=== PATIENT | female | born 1990 | race American Indian/Alaskan Native ===

== ENCOUNTER 2017-07-26 05:34 | Day surgery (SDC) | payer OTHER ==
--- NOTE | 2017-07-22 12:15 | History and Physical Report ---
History of Present Illness Date of examination: 07/22/17 Date of admission: 07/18/2017 Chief complaint: here for cerclage History of present illness: Pt with h/o cervical incompetence present for preop for cerclage placement. All risk, benefits and alternatives were d/w pt and questions were addressed and answered. Risk including but not limited to, SROM, bleeding, injury to cervix, uterus, vagina, delivery, loss of . Pt and expressed understanding and questions were addressed and answered. Menstrual History Regularity: regular Duration: 5 LMP: 04/17/2017 LMP reliability: month known LMP character: normal test type: urine test Date: 06/11/2017 BC at conception: none Planned ? yes EDC Calculations LMP: 01/22/2018 EDC Confirmation: 01/22/2018 Gestational Age: 7 6/7 weeks Past History : 2 Term Births: 0 Premature Births: 1 Living Children: 0 Para: 1 Mult. Births: 0 Prev : 0 Prev. attempt? 0 Aborta: 0 Elect. Ab: 0 Spont. 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 of genital herpes: no Partner hx. of genital herpes: no Genetic History Congenital Heart Defect: Mom: no Dad: no Sumit Disease: Mom: no Dad: no Thalassemia Mom: no Dad: no Neural Tube Defect Mom: no Dad: no Down's Syndrome Mom: no Dad: no Chaim-Sachs Mom: no Dad: no Sickle Cell Disease/Trait Mom: no Dad: no Hemophilia Mom: no Dad: no Muscular Dystrophy Mom: no Dad: no Cystic Fibrosis Mom: no Dad: no Marie Chorea Mom: no Dad: no Mental Retardation Mom: no Dad: no Fragile X Mom: no Dad: no Other Genetic/Chromosomal Disorder Mom: no Dad: no Child w/other defect Mom: no Dad: no Enviromental Exposures Xray Exposure: no Medication, drug, or alcohol use since LMP: no Chemical/Other Exposure: no Exposure to Cat Liter: no Active Medications (reviewed today): VITAMINS () Current Allergies (reviewed today): No known allergies Past History Past Medical History: other (see hpi) Past Surgical History: other (see hpi) SHOULDER BONER History: other (see hpi) Family/Genetic History: other (see hpi) Social history: no significant social history - Obstetrical History Expected Date of Delivery: 01/22/18 Actual Gestation: 13 Week(s) 5 Day(s) : 2 Number of Pregnancies: 1 (@ 21 wks cervical incompetence, PTL) Number of Living Children: 0 Review of Systems All systems: negative - Physical Exam Cardiovascular: Normal S1 Lungs: Positive: Clear to auscultation, Normal air movement Abdomen: Positive: normal appearance, soft. Negative: distention, tenderness, guarding Genitourinary (Female): Positive: other (deferred until EUA) - Obstetrical FHR: auscultation normal Results All other labs normal. Assessment and Plan - Patient Problems (1) 14 weeks gestation of Status: Acute (2) Cervical incompetence affecting management of in second trimester , antepartum Status: Acute Plan to address problem: -CL normal at this time. Will proceed with prophalactic cerclage placement at this time. Consents singed and given to pt to present on day of surgery.
[~2017-07-26 05:34] MED LIST: ZOFRAN IV PRN
[2017-07-26] MEDS ORDERED: LACTATED RINGERS 1,000 ML ONE ×2 (05:46→08:37)
[2017-07-26] MEDS ORDERED: LACTATED RINGERS 1,000 ML IV ONE (06:06)
[2017-07-26] MEDS ORDERED: BICITRA PO ONE (06:07)
[2017-07-26] MEDS ORDERED: PEPCID IV ONE (06:10)
[2017-07-26 06:20] LABS: Basophils % (Auto) 0.2 % (0.0-1.8); Eosinophils # (Auto) 0.1 K/mm3 (0.0-0.4); Eosinophils % (Auto) 1.9 % (0.0-4.3); Hematocrit 35.3 % (30.3-42.9); Hemoglobin 11.5 gm/dl (10.1-14.3); Lymphocytes # (Auto) 1.7 K/mm3 (1.2-5.4); Lymphocytes % (Auto) 25.3 % (13.4-35.0); Mean Corpuscular HGB Conc 33 % (30-34); Monocytes # (Auto) 0.5 K/mm3 (0.0-0.8); Monocytes % (Auto) 7.6 % (0.0-7.3); Platelet Count 212 K/mm3 (140-440); Red Blood Count 5.16 M/mm3 (3.65-5.03); Red Cell Distribution Width 16.2 % (13.2-15.2)
[2017-07-26 06:22] LABS: Mean Corpuscular Hemoglobin 22 pg (28-32); Mean Corpuscular Volume 68 fl (79-97)
[2017-07-26] MEDS ORDERED: REGLAN IV NR (07:00)
[2017-07-26] MEDS ORDERED: ANCEF/STERILE WATER 2 GM/20 ML IV NR (07:23)
[2017-07-26] MEDS ORDERED: XYLOCAINE MPF 2% ONE (08:24)
[2017-07-26] MEDS ORDERED: WATER FOR IRRIG STERILE IR ONE (08:30)
--- NOTE | 2017-07-26 09:09 | Anesthesia Consultation ---
Anesthesia Consult and Med Hx Date of service: 07/26/17 - Pulmonary Exam CTA: Yes - Cardiac Exam Cardiac Exam: RRR - Pre-Operative Health Status ASA Pre-Surgery Classification: ASA2 (14 wk ; incompetent cervix) - Pulmonary Hx Asthma: No COPD: No Hx Pneumonia: No - Cardiovascular System Hx Hypertension: No - Central Nervous System Hx Seizures: No Hx Psychiatric Problems: No - Endocrine Hx Renal Disease: No Hx End Stage Renal Disease: No Hx Hypothyroidism: No Hx Hyperthyroidism: No - Hematic Hx Anemia: No Hx Sickle Cell Disease: No - Other Systems Hx Alcohol Use: No
--- NOTE | 2017-07-26 09:10 | Anesthesia Day of Surgery ---
Anesthesia Day of Surgery - Day of Surgery Patient Examined: Yes Patient H&P Reviewed: Yes Patient is NPO: Yes
--- NOTE | 2017-07-26 09:25 | Short Stay Summary ---
Short Stay Documentation Date of service: 07/26/17 - History H&P: dictated Social history: no significant social history - Allergies and Medications Current Medications: Allergies No Known Allergies Allergy (Verified 07/26/17 05:54) Home Medications Medication Instructions Recorded Confirmed Last Taken Type Vit No.130/Iron/Folic 1 each PO QDAY 07/26/17 07/26/17 07/25/17 History [ Tablet] Active Medications Acetaminophen (Tylenol) 650 mg PO Q4H PRN PRN Reason: Pain MILD(1-3)/Fever >100.5/GEIGER Cefazolin Sodium (Ancef/Sterile Water 2 Gm/20 Ml) 2 gm IV PREOP NR Stop: 07/26/17 23:59 Ondansetron HCl (Zofran) 4 mg IV Q8H PRN PRN Reason: Nausea And Vomiting - Brief post op/procedure progress note Date of procedure: 07/26/17 Pre-op diagnosis: cervical incompetence ; 14 wks gestation Post-op diagnosis: same Procedure: cerglcage placement Anesthesia: spinal Findings: Normal cervix. closed. No bleeding prior to procedure or LOF. minimal bleeding after the procedure and no LOF at end of procedure. Surgeon: ANGELA KELLER Estimated blood loss: minimal Pathology: none Condition: stable - Hospital course Hospital course: Pt admitted for above stated procedure. Pt observed and once d/c criteria was met was d/c home. FHTs checked prior to and after the procedure and were normal. - Disposition Condition at discharge: Good Disposition: DC-01 TO HOME OR SELFCARE - Discharge Diagnoses (1) 14 weeks gestation of Status: Acute (2) Cervical incompetence affecting management of in second trimester , antepartum Status: Acute Short Stay Discharge Plan Activity: no restrictions, other (pelvic rest. no sex, no tampons, no douching, ABSOLUTELY NOTHING IN THE VAGINA) Diet: regular Wound: open to air Special Instructions: restrict fluid intake to Follow up with: ANGELA KELLER MD [Primary Care Provider] - 7 Days
--- NOTE | 2017-07-26 09:36 | Operative Report ---
Operative Report Operative Report: Date of procedure: 07/26/2017 Pre-operative diagnosis: Cervical incompetence 14 weeks gestation Post-operative diagnosis: Same Procedure name(s): Melony cerclage Surgeon: Dr. Subramanian Executive Consultant: Ms. Tania De Luna CST Anesthesia: Spinal EBL: Minimal Urine output: 200 mL of clear urine out via straight catheterization at the beginning of the procedure. Fluids: 1 L Findings: Closed cervix appears to be normal length. There is no evidence of rupture membranes before after the procedure. Minimal bleeding was noted during the procedure. Patient was noted to be completely hemostatic at the end of the procedure. Stitch was placed at the 12 o'clock position. Indications: Patient presents for placement of prophylactic cervical cerclage for history of loss at 20 weeks gestation. Patient was given a diagnosis of cervical incompetence. Cerclage placement was recommended by the perinatologist. Procedure: After informed consent was obtained patient was taken to the operating room where she was placed in dorsal lithotomy position with legs being placed in Scott stirrups. The patient was then prepped and draped in sterile fashion. Patient underwent straight catheterization as above. Sterile speculum was then placed inside of the vagina. Cervix was then prepped with Betadine. Anterior lip of the cervix was grasped with the ring forceps. The Mersilene suture was then placed starting at the 12:00 position with a purse string suture being placed to encompass the entire cervix. Care was taken to avoid the 3:00 and 6:00 positions of the cervix. The suture was then secured by tying down the suture with several knots. Minimal bleeding was noted during the procedure at the level of the cervix. Her was no evidence of rupture of membranes at the end of the procedure. There was no bleeding noted at the end of the procedure. Patient tolerated procedure well. All instruments were removed from the vagina. Patient was taken to the recovery room awake and in stable condition.
[2017-07-26] MEDS: TYLENOL PO PRN ×2 (09:46→13:55)
[2017-07-26 11:54] VITALS: BP 107/63
--- NOTE | 2017-07-26 12:49 | Post Anesthesia Evaluation ---
- Post Anesthesia Evaluation Patient Participated: Yes Airway Patent: Yes Stable Respiratory Function: Yes Nausea/Vomiting: No Temp > 96.8F: Yes Pain Manageable: Yes Adequeate Hydration: Yes Anesthesia Complications: No
== END 2017-07-26 14:06 | disposition home or self-care (01) ==
LOC: LDOR 05:34 → APU 05:42 → LDOR 14:06
PROVIDERS: ATTEND Obstetrics & Gynecology
DX: O34.32 Maternal care for cervical incompetence, second trimester (principal); Z3A.14 14 weeks gestation of pregnancy
CPT/HCPCS: 36415; 59320; 85025; 86850; 86900; 86901; 96360; J2765; J7120

== ENCOUNTER 2018-01-29 12:34 | Inpatient (IN) | payer OTHER ==
[2018-01-29] MEDS ORDERED: PEPCID IV ONE (12:53)
[2018-01-29] MEDS ORDERED: BICITRA PO ONE (12:53)
[2018-01-29] MEDS ORDERED: REGLAN IV ONE (12:53)
[2018-01-29] MEDS ORDERED: ANCEF/STERILE WATER 2 GM/20 ML 2 GM/20 ML SYRINGE IV NR (13:00)
[2018-01-29] MEDS ORDERED: PITOCin/NS 20 UNIT/1000ML DRIP 20 UNITS/1,000 ML BAG IV SCH ×2 (13:00→19:00)
[2018-01-29] MEDS: LACTATED RINGERS 1,000 ML IV SCH ×3 (13:20→22:42)
--- NOTE | 2018-01-29 13:23 | Anesthesia Consultation ---
Anesthesia Consult and Med Hx Date of service: 01/29/18 - Airway Anesthetic Teeth Evaluation: Good ROM Head & Neck: Adequate Mental/Hyoid Distance: Adequate Mallampati Class: Class II Intubation Access Assessment: Probably Good - Pre-Operative Health Status ASA Pre-Surgery Classification: ASA2 Proposed Anesthetic Plan: Epidural, Spinal - Pulmonary Hx Asthma: No COPD: No Hx Pneumonia: No - Cardiovascular System Hx Hypertension: No - Central Nervous System Hx Seizures: No Hx Psychiatric Problems: No - Endocrine Hx Renal Disease: No Hx End Stage Renal Disease: No Hx Hypothyroidism: No Hx Hyperthyroidism: No - Hematic Hx Anemia: No Hx Sickle Cell Disease: No - Other Systems Hx Alcohol Use: No
[2018-01-29] MEDS ORDERED: ZOFRAN IV PRN ×2 (13:24→18:05)
[2018-01-29] MEDS ORDERED: PHENERGAN PO PRN (13:24)
[2018-01-29] MEDS ORDERED: PHENERGAN PR PRN (13:24)
[2018-01-29] MEDS ORDERED: BENADRYL IV PRN (13:24)
[2018-01-29] MEDS ORDERED: NARCAN 0.4 MG/1 ML IV PRN ×2 (13:24→18:05)
[2018-01-29] MEDS ORDERED: DILAUDID IV PRN (13:24)
--- NOTE | 2018-01-29 13:24 | Anesthesia Day of Surgery ---
Anesthesia Day of Surgery - Day of Surgery Patient Examined: Yes Patient H&P Reviewed: Yes Patient is NPO: Yes
[2018-01-29] MEDS ORDERED: TORADOL IV PRN (13:25)
--- NOTE | 2018-01-29 13:57 | History and Physical Report ---
History of Present Illness Date of examination: 01/29/18 (pt sent from office BREECH presentation @ 41 weeks) Date of admission: 01/29/18 12:34 History of present illness: pt seen in office today for 41 week evaluation US showed breech presentation. Pt sent to L&D for section per Pt had cervical cerclage placed 07-26-17 and then removed @ 36 weeks 12-27-17 by EDC Confirmation: 01/22/2018 Gestational Age: 7 6/7 weeks Past History : 2 Term Births: 0 Premature Births: 1 Living Children: 0 Para: 1 Mult. Births: 0 Prev : 0 Prev. attempt? 0 Aborta: 0 Elect. Ab: 0 Spont. 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 of genital herpes: no Partner hx. of genital herpes: no Genetic History Congenital Heart Defect: Mom: no Dad: no Sumit Disease: Mom: no Dad: no Thalassemia Mom: no Dad: no Neural Tube Defect Mom: no Dad: no Down's Syndrome Mom: no Dad: no Chaim-Sachs Mom: no Dad: no Sickle Cell Disease/Trait Mom: no Dad: no Hemophilia Mom: no Dad: no Muscular Dystrophy Mom: no Dad: no Cystic Fibrosis Mom: no Dad: no [place] Chorea Mom: no Dad: no Mental Retardation Mom: no Dad: no Fragile X Mom: no Dad: no Other Genetic/Chromosomal Disorder Mom: no Dad: no Child w/other defect Mom: no Dad: no Enviromental Exposures Xray Exposure: no Medication, drug, or alcohol use since LMP: no Chemical/Other Exposure: no Exposure to Cat Liter: no Active Medications (reviewed today): VITAMINS () Current Allergies (reviewed today): No known allergies Past History - Obstetrical History Expected Date of Delivery: 01/22/18 Actual Gestation: 41 Week(s) 0 Day(s) : 2 Para: 1 Hx # Term Pregnancies: 0 Number of Pregnancies: 0 Spontaneous Abortions: 0 Induced : 0 Number of Living Children: 0 Medications and Allergies Allergies Allergy/AdvReac Type Severity Reaction Status Date / Time No Known Allergies Allergy Verified 07/26/17 05:54 Home Medications Medication Instructions Recorded Confirmed Last Taken Type Vit No.130/Iron/Folic 1 each PO QDAY 07/26/17 01/29/18 01/28/18 08:00 History [ Tablet] Ferrous Sulfate [Feosol 325 MG tab] 325 mg PO BID #60 tablet 01/29/18 Unknown Rx Ibuprofen [Motrin 800 MG tab] 800 mg PO Q6H PRN #30 tablet 01/29/18 Unknown Rx oxyCODONE /ACETAMINOPHEN [Percocet 1 - 2 tab PO Q4H PRN #30 tablet 01/29/18 Unknown Rx 5/325 mg] Active Meds: Active Medications Diphenhydramine HCl (Benadryl) 12.5 mg IV Q2H PRN PRN Reason: Itching Hydromorphone HCl (Dilaudid) 0.5 mg IV Q5M PRN PRN Reason: Breakthrough Pain Cefazolin Sodium (Ancef/Sterile Water 2 Gm/20 Ml) 2 gm in 20 mls @ 80 mls/hr IV PREOP NR; Protocol Stop: 01/29/18 23:59 Lactated Ringer's (Lactated Ringers) 1,000 mls @ 2,250 mls/hr IV PREOP BAUTISTA Stop: 01/30/18 13:27 Oxytocin/Sodium Chloride (Pitocin/Ns 20 Unit/1000ml Drip) 20 units in 1,000 mls @ 0 mls/hr IV TITR BAUTISTA Ketorolac Tromethamine (Toradol) 30 mg IV Q6H PRN PRN Reason: Pain, Moderate (4-6) Stop: 02/03/18 13:24 Naloxone HCl (Narcan 0.4 Mg/1 Ml) 0.2 mg IV Q2MIN PRN PRN Reason: Res Rate </= 8 or 02 SAT < 92% Ondansetron HCl (Zofran) 4 mg IV Q8H PRN PRN Reason: Nausea And Vomiting Promethazine HCl (Phenergan) 25 mg PO Q6H PRN PRN Reason: Nausea And Vomiting Promethazine HCl (Phenergan) 25 mg WV Q6H PRN PRN Reason: Nausea And Vomiting Sodium Chloride (Sodium Chloride Flush Syringe 10 Ml) 10 ml IV PRN NR Stop: 01/30/18 13:59 - Physical Exam Breasts: Positive: deferred Cardiovascular: Regular rate, Normal S1, Normal S2 Lungs: Positive: Normal air movement Abdomen: Positive: normal appearance, soft, normal bowel sounds. Negative: distention, tenderness Genitourinary (Female): Positive: normal external genitalia Vulva: both: normal Vagina: Positive: normal moisture. Negative: discharge Cervix: Negative: lesion, discharge Uterus: Positive: normal size, normal contour Adnexa: both: normal Anus/Rectum: Positive: normal perianal skin, heme negative. Negative: rectal mass, hemorrhoids Extremities: Positive: normal Deep Tendon Reflex Grade: Normal +2 - Obstetrical Uterine Contraction Pattern: Irregular Uterine Tone Measurement Phase: Resting Uterine Contraction Intensity: Mild Results Result Diagrams: 01/29/18 13:20 All other labs normal. Strep Gp B FRACISCO [A] Positive HBsAg Screen Negative Negative *1 RPR Non Reactive Non Reactive *2 Rubella Antibodies, IgG 25.80 index Immune >0.99 *3 Non-immune <0.90 Equivocal 0.90 - 0.99 Immune >0.99 ABO Grouping A *4 Rh Factor Positive *5 Please note: Prior records for this patient's ABO / Rh type are not available for additional verification. Antibody Screen Negative Negative *6 WBC 7.5 x10E3/uL 3.4-10.8 *7 RBC [H] 5.63 x10E6/uL 3.77-5.28 *8 Hemoglobin 12.4 g/dL 11.1-15.9 *9 Hematocrit 39.2 % 34.0-46.6 *10 MCV [L] 70 fL 79-97 *11 MCH [L] 22.0 pg 26.6-33.0 *12 MCHC 31.6 g/dL 31.5-35.7 *13 RDW [H] 17.7 % 12.3-15.4 *14 Platelets 257 x10E3/uL 150-379 *15 Neutrophils 70 % Not Estab. *16 Lymphs 21 % Not Estab. *17 Monocytes 8 % Not Estab. *18 Eos 1 % Not Estab. *19 Basos 0 % Not Estab. *20 ! Immature Cells <No Reported Value> *21 Neutrophils (Absolute) 5.2 x10E3/uL 1.4-7.0 *22 Lymphs (Absolute) 1.6 x10E3/uL 0.7-3.1 *23 Monocytes(Absolute) 0.6 x10E3/uL 0.1-0.9 *24 Eos (Absolute) 0.1 x10E3/uL 0.0-0.4 *25 Baso (Absolute) 0.0 x10E3/uL 0.0-0.2 *26 ! Immature Granulocytes 0 % Not Estab. *27 ! Immature Grans (Abs) 0.0 x10E3/uL 0.0-0.1 *28 ! NRBC <No Reported Value> *29 Hematology Comments: <No Reported Value> *30 Tests: (2) HB Solu + Rflx Fra (482142) Hemoglobin (Hgb) Solubility Negative Negative *31 Tests: (3) Panel [id number] ([id number]) HIV Screen 4th Generation wRfx Non Reactive Non Reactive *32 Tests: (4) HCV Ab w/Rflx to Verification ([id number]) ! HCV Ab <0.1 s/co ratio 0.0-0.9 *33 Tests: (5) Comment: ([id number]) ! Comment: SPRCS *34 Non reactive HCV antibody screen is consistent with no HCV infection, unless recent infection is suspected or other evidence exists to indicate HCV infection. Tests: (6) Urine Culture, Routine ([id number]) Urine Culture, Routine Final report *35 Tests: (7) Result ([id number]) ! Result 1 No growth Assessment and Plan 27yo G 2 P1 @ 41 weeks Breech C/S orders in EMR. aware. GBS positive Consents signed - Patient Problems (1) 41 weeks gestation of Onset Date: ~01/29/18 Current Visit: Yes Status: Acute (2) Breech presentation Onset Date: ~01/29/18 Current Visit: Yes Status: Acute Qualifiers: Fetus number: single or unspecified fetus Qualified Code(s): O32.1XX0 - Maternal care for breech presentation, not applicable or unspecified
[2018-01-29] MEDS ORDERED: SODIUM CHLORIDE FLUSH SYRINGE 10 ML IV NR (14:00)
[2018-01-29 14:27] LABS: Basophils % (Auto) 0.6 % (0.0-1.8); Eosinophils % (Auto) 0.7 % (0.0-4.3); Hematocrit 37.7 % (30.3-42.9); Lymphocytes # (Auto) 1.6 K/mm3 (1.2-5.4); Lymphocytes % (Auto) 21.7 % (13.4-35.0); Mean Corpuscular HGB Conc 32 % (30-34); Mean Corpuscular Hemoglobin 23 pg (28-32); Mean Corpuscular Volume 71 fl (79-97); Monocytes # (Auto) 0.7 K/mm3 (0.0-0.8); Monocytes % (Auto) 9.2 % (0.0-7.3); Platelet Count 146 K/mm3 (140-440); Red Blood Count 5.26 M/mm3 (3.65-5.03); Red Cell Distribution Width 17.6 % (13.2-15.2)
[2018-01-29] MEDS ORDERED: WATER FOR IRRIG STERILE IR ONE (15:06)
[2018-01-29] MEDS ORDERED: NACL 0.9% IR ONE (15:06)
[2018-01-29] MEDS ORDERED: NEO SYNEPHRINE/NS Syringe(OR USE) IV ONE (15:10)
[2018-01-29] MEDS ORDERED: LACTATED RINGERS 1,000 ML ONE (15:11)
[2018-01-29] MEDS ORDERED: ASTRAMORPH PF 10MG/10ML ONE (15:30)
--- NOTE | 2018-01-29 15:50 | Operative Report ---
Operative Report Operative Report: Date of procedure: 03/01/2018 Pre-operative diagnosis:. at 41 weeks with breech presentation Post-operative diagnosis: [Same] Procedure name(s): Primary low transverse section Surgeon: Michael Amor MD Multiple Drum Sander Helper: Jaylin Bean, certified nurse lending consultant Anesthesia: Spinal EBL: 600 mL Complications: None Findings: Normal uterus tubes and ovaries bilaterally. Female weight 7 lbs. 9 oz. Apgars 8 at 1 minute and 9 at 5 minutes Specimen(s): None Procedure: The patient was brought to the operating room. A spinal was placed without any complications. She was then placed in left lateral tilt. Prepped and draped in the usual sterile manner. After testing for adequate anesthesia level, a Pfannenstiel incision was made. This incision was taken down to the fascia. The fascia was then nicked in the midline. This incision was extended out laterally with Hamm scissors. The fascia was then sharply and bluntly from the underlying rectus muscles. The rectus muscles were bluntly and sharply . The peritoneum was then entered with the finger grip machine operator's fingers. This incision was spread vertically with care not to damage the bladder below. The bladder flap was then formed sharply and bluntly with Metzenbaum scissors. A transverse incision was made in lower uterine segment. This incision was extended laterally with the operators fingers. The amniotic sac was then entered bluntly with the finger grip machine operator's fingers. The infant was delivered by delivered in the breech first flexing and extending the lower extremities followed by raising the breech then sweeping flexing and extending the upper extremities and after coming head was then delivered safely. The was bulb suctioned on the mother's abdomen. Cord was double clamped and cut. The infant was then passed to the nursery personnel who were in attendance. The above scores were given by the nursery personnel. The placenta was then bluntly removed. The uterus was then externalized and wiped clean the remaining products. The uterine incision was closed in layers. The first incision was closed in a locking manner using 0 Vicryl. This was followed by imbricating stitch also with 0 Vicryl. This closure was hemostatic. The bladder flap was copiously irrigated and found to be hemostatic. The pelvis was copiously irrigated and found to be hemostatic. The uterus was then placed back to the patient's abdomen. The retractors were removed. The rectus muscles were inspected and found to be hemostatic. The fascia was then closed in a running manner using 0 Vicryl. This incision was hemostatic irrigation Bovie. The skin was reapproximated with 4-0 Vicryl subcuticularly. The patient tolerated procedure well. Her urine was clear. The infant was admitted to the well baby nursery. The patient was accompanied to recovery room in good condition.
[2018-01-29] MEDS ORDERED: MAGNESIUM SULFATE 4GM/100ML 4 GM/100 ML BAG IV ONE (16:43)
[2018-01-29] MEDS: MAGNESIUM SULFATE 40GM/1000ML 40 GM/1,000 ML BAG IV SCH (17:21)
[2018-01-29] MEDS ORDERED: NORCO 5/325 PO PRN (18:05)
[2018-01-29] MEDS ORDERED: SODIUM CHLORIDE FLUSH SYRINGE 10 ML IV SCH (18:05)
[2018-01-29] MEDS ORDERED: LANSINOH TP PRN (18:05)
[2018-01-29] MEDS ORDERED: MILK OF MAGNESIA PO PRN (18:05)
[2018-01-29] MEDS ORDERED: TUCKS PAD TP PRN (18:05)
[2018-01-29] MEDS ORDERED: ANUCORT-HC PR PRN (18:05)
[2018-01-29] MEDS ORDERED: D5LR 1,000 ML IV SCH (18:39)
[2018-01-29 19:50] LABS: BUN/Creatinine Ratio 16; Blood Urea Nitrogen 8 mg/dL (7-17); Calcium 8.9 mg/dL (8.4-10.2); Hemolysis Index 1
[2018-01-29 19:53] LABS: Alanine Aminotransferase 18 units/L (7-56)
[2018-01-29] MEDS: TORADOL IV SCH (21:00)
[2018-01-29] MEDS: ANCEF/NS 1 GM/50 ML 1 GM/50 ML BAG IV SCH (22:00)
[2018-01-30] MEDS: TORADOL IV SCH ×3 (03:47→18:17)
[2018-01-30] MEDS: ANCEF/NS 1 GM/50 ML 1 GM/50 ML BAG IV SCH (05:09)
[2018-01-30 06:28] LABS: Hematocrit 34.9 % (30.3-42.9)
--- NOTE | 2018-01-30 06:48 | Progress Note ---
Assessment and Plan - Patient Problems (1) delivery delivered Onset Date: ~01/29/18 Current Visit: Yes Status: Acute Plan to address problem: pt resting SO walking around and bottle feeding NB BP 150-140/80 Pulse >100 FF below umb Lochia scant Dressing D&I H&H stable Stable s/p c/s P: Strongly encouraged pt to advance her activity, use IS freq, sit up more, hydration. Continue pathway Advance diet and activity as tolerated. Will monitor BPs closely Abd binder ordered Subjective - Subjective Date of service: 01/30/18 Principal diagnosis: Day # 1 s/p section BREECH Interval history: pt seen in office today for 41 week evaluation US showed breech presentation. Pt sent to L&D for section per Pt had cervical cerclage placed 07-26-17 and then removed @ 36 weeks 12-27-17 by EDC Confirmation: 01/22/2018 Gestational Age: 7 6/7 weeks Past History : 2 Term Births: 0 Premature Births: 1 Living Children: 0 Para: 1 Mult. Births: 0 Prev : 0 Prev. attempt? 0 Aborta: 0 Elect. Ab: 0 Spont. 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 of genital herpes: no Partner hx. of genital herpes: no Genetic History Congenital Heart Defect: Mom: no Dad: no Sumit Disease: Mom: no Dad: no Thalassemia Mom: no Dad: no Neural Tube Defect Mom: no Dad: no Down's Syndrome Mom: no Dad: no Chaim-Sachs Mom: no Dad: no Sickle Cell Disease/Trait Mom: no Dad: no Hemophilia Mom: no Dad: no Muscular Dystrophy Mom: no Dad: no Cystic Fibrosis Mom: no Dad: no Marie Chorea Mom: no Dad: no Mental Retardation Mom: no Dad: no Fragile X Mom: no Dad: no Other Genetic/Chromosomal Disorder Mom: no Dad: no Child w/other defect Mom: no Dad: no Enviromental Exposures Xray Exposure: no Medication, drug, or alcohol use since LMP: no Chemical/Other Exposure: no Exposure to Cat Liter: no Active Medications (reviewed today): VITAMINS () Current Allergies (reviewed today): No known allergies Patient reports: pain well controlled : doing well Objective - Vital Signs Latest vital signs: Vital Signs Temp Pulse Resp BP BP Pulse Ox 01/30/18 04:21 98 F 105 H 18 146/83 01/30/18 02:35 98.5 F 111 H 20 150/87 01/30/18 00:50 98.6 F 110 H 18 140/86 01/29/18 22:10 99.3 F 104 H 20 159/85 01/29/18 20:35 98.5 F 101 H 18 159/87 01/29/18 18:00 98.3 F 71 18 142/86 99 01/29/18 17:15 98.1 F 68 11 L 150/91 99 01/29/18 17:05 66 13 148/83 100 01/29/18 17:00 79 16 146/90 100 01/29/18 16:50 71 17 154/77 100 01/29/18 16:35 68 17 150/81 100 01/29/18 16:20 69 20 140/77 99 01/29/18 16:12 75 13 139/80 99 01/29/18 16:05 75 13 139/80 99 01/29/18 16:00 98 H 18 140/80 98 01/29/18 15:55 91 H 15 135/83 98 01/29/18 15:50 97.7 F 91 H 16 127/80 98 Intake and Output 01/29/18 01/29/18 01/30/18 14:59 22:59 06:59 Intake Total 1000 1690 Output Total 1200 Balance 1000 490 Intake: IV 1000 1450 ANCEF/NS 1 GM/50 ML 1 gm 50 In 50 ml @ 100 mls/hr IV Q8H [facility] Rx#:[id number] Lactated Ringers 1,000 ml 1000 @ 2250 mls/hr IV PREOP [facility] Rx#:[id number] Intake, Free Water 240 Output: Urine 1200 Indwelling Catheter 800 Other: Total, Output Amount 800 Weight 194 lb Estimated Blood Loss 600 Patient Weight 01/30/18 06:59 Weight 194 lb - Exam Breasts: Present: normal Cardiovascular: Present: Regular rate Lungs: Present: Clear to auscultation Abdomen: Present: normal appearance, soft, normal bowel sounds Uterus: Present: normal, firm, fundal height below umbilicus Extremities: Present: normal, edema Deep Tendon Reflex Grade: Normal +2 Incision: Present: normal, dry, intact, dressed (to be removed) - Labs Labs: Abnormal lab results 01/29/18 01/29/18 01/30/18 Range/Units 13:20 19:16 00:28 RBC 5.26 H (3.65-5.03) M/mm3 MCV 71 L (79-97) fl MCH 23 L (28-32) pg RDW 17.6 H (13.2-15.2) % Wake % (Auto) 9.2 H (0.0-7.3) % Sodium 135 L (137-145) mmol/L Carbon Dioxide 21 L (22-30) mmol/L Creatinine 0.5 L (0.7-1.2) mg/dL Magnesium 5.30 H (1.7-2.3) mg/dL
[2018-01-30] MEDS ORDERED: BENADRYL IV NR (08:07)
[2018-01-30] MEDS: MAGNESIUM SULFATE 40GM/1000ML 40 GM/1,000 ML BAG IV SCH (13:14)
[2018-01-30] MEDS: LACTATED RINGERS 1,000 ML IV SCH (15:28)
[2018-01-30] MEDS ORDERED: NORMODYNE PO ONE (16:02)
[2018-01-30] MEDS: PRENATAL VITAMIN PO SCH (16:07)
[2018-01-30] MEDS: FEOSOL PO SCH (16:07)
[2018-01-30] MEDS ORDERED: APRESOLINE IV ONE (17:17)
[2018-01-30] MEDS ORDERED: TYLENOL PO PRN ×2 (18:27→21:26)
--- NOTE | 2018-01-30 18:40 | Event Note ---
Date: 01/30/18 (BP 148/92 after hydralizine) Pt states she has a very bad GEIGER frontal that moves over the left temporal to her neck; she states she feels bad all over. Temp 101.8 orally now after having pt not drink for several minutes. Abdomen is warm and tender to touch. Tylenol PO given. Pt has had her fong removed, her MGSO4 has been discontinued. Consulted with Orders to follow.
[2018-01-30] MEDS ORDERED: NACL 0.9% 500 ML 500 ML IV ONE (18:41)
[2018-01-30] MEDS ORDERED: VANCOMYCIN VIAL IV ONE (18:51)
[2018-01-30] MEDS ORDERED: VANCOMYCIN 1,750 MG in NACL 0.9% 500 ML 500 ML IV ONE (19:00)
[2018-01-30] MEDS ORDERED: VANCOMYCIN/NS 1 GM/250 ML 1 GM/250 ML BAG IV SCH (19:00)
[2018-01-30] MEDS: NORMODYNE PO SCH (19:42)
[2018-01-30 20:25] LABS: Hematocrit 32.5 % (30.3-42.9); Hemoglobin 10.8 gm/dl (10.1-14.3); Mean Corpuscular HGB Conc 33 % (30-34); Platelet Count 162 K/mm3 (140-440); Red Blood Count 4.66 M/mm3 (3.65-5.03); Red Cell Distribution Width 17.6 % (13.2-15.2)
--- NOTE | 2018-01-30 20:26 | XRay Report ---
FINAL REPORT PROCEDURE: XR CHEST 1V AP TECHNIQUE: Chest radiograph anteroposterior view. CPT 68555 HISTORY: possible Sepsis COMPARISON: No prior studies are available for comparison. FINDINGS: The heart is magnified due to projection probably upper normal size. Pulmonary vasculature appears normal. Lung drew are suboptimally seen due to portable technique, poor inspiratory effort and the patient's body habitus. There appears to be increased density in the left perihilar region extending into the left upper lobe suspicious for infiltrate or atelectasis. No effusions are identified. No acute bony abnormalities are identified. IMPRESSION: Patchy increased density left perihilar region extending superiorly suspicious for an infiltrate or atelectasis in the left upper lobe. Heart size upper normal. .
[2018-01-30 20:28] LABS: Mean Corpuscular Hemoglobin 23 pg (28-32); Mean Corpuscular Volume 70 fl (79-97)
[2018-01-30 20:52] LABS: Alanine Aminotransferase 17 units/L (7-56); BUN/Creatinine Ratio 10; Blood Urea Nitrogen 6 mg/dL (7-17); Calcium 7.4 mg/dL (8.4-10.2); Hemolysis Index 6
--- NOTE | 2018-01-30 21:22 | Progress Note ---
Assessment and Plan - Patient Problems (1) delivery delivered Onset Date: ~01/29/18 Current Visit: Yes Status: Acute (2) Febrile illness, acute Current Visit: Yes Status: Acute Plan to address problem: Probably d/t atelectasis vs early pneumonia. Too early for endometritis. No obvious evidence of PE Continue vancomycin for now Encouraged ambulation and IS usage (3) Abnormal chest xray Current Visit: Yes Status: Acute Plan to address problem: atelectasis vs early pneumonia (4) Preeclampsia Current Visit: Yes Status: Acute Plan to address problem: S/P MgSO4 Subjective - Subjective Date of service: 01/30/18 Principal diagnosis: Day # 1 s/p section BREECH Objective - Vital Signs Latest vital signs: Vital Signs Temp Pulse Resp BP BP Pulse Ox 01/30/18 20:03 99.2 F 01/30/18 19:42 103 H 132/78 01/30/18 19:36 18 01/30/18 19:34 18 01/30/18 19:31 101.2 F H 103 H 22 132/78 93 01/30/18 17:55 101.6 F H 113 H 18 148/92 01/30/18 17:42 113 H 172/94 01/30/18 17:12 99.8 F H 117 H 20 172/94 91 01/30/18 16:26 107 H 167/97 01/30/18 15:30 107 H 18 167/97 93 01/30/18 11:46 99.0 F 122 H 20 152/91 97 01/30/18 11:35 98.5 F 18 128/94 01/30/18 09:59 98.9 F 116 H 20 141/93 97 01/30/18 08:11 98.6 F 107 H 20 139/88 93 01/30/18 06:50 97.8 F 104 H 18 133/83 01/30/18 04:21 98 F 105 H 18 146/83 01/30/18 02:35 98.5 F 111 H 20 150/87 01/30/18 00:50 98.6 F 110 H 18 140/86 01/29/18 22:10 99.3 F 104 H 20 159/85 Intake and Output 01/30/18 01/30/18 01/30/18 06:59 14:59 22:59 Intake Total 240 1500 Output Total 800 4650 Balance -560 -3150 Intake: IV 1000 Lactated Ringers 1,000 ml 1000 @ 75 mls/hr IV DIRECT [facility] Rx#:[id number] Oral 380 Intake, Free Water 240 120 Output: Urine 800 4650 Indwelling Catheter 800 4650 Other: Intake, Other Source Saline Solution Total, Intake Amount 380 Total, Output Amount 800 1300 # Voids Indwelling Catheter 1 - Exam Narrative Exam: Reclining in bed, she denies chest pain, cough, SOB, Lungs: Present: Other (poor effort, decreased BS both bases L>R) Abdomen: Present: soft, distention, tenderness (diffuse, no rebound), guarding, normal bowel sounds Uterus: Present: other (unable to palpate d/t guarding) Extremities: Present: normal. Absent: tenderness, edema Incision: Present: normal, dry, intact (no s/s infection) - Labs Labs: Abnormal lab results 01/30/18 01/30/18 01/30/18 Range/Units 00:28 05:42 13:19 WBC (4.5-11.0) K/mm3 MCV (79-97) fl MCH (28-32) pg RDW (13.2-15.2) % Sodium (137-145) mmol/L Chloride (98-107) mmol/L BUN (7-17) mg/dL Creatinine (0.7-1.2) mg/dL Calcium (8.4-10.2) mg/dL Magnesium 5.30 H 5.60 H 5.80 H (1.7-2.3) mg/dL Total Protein (6.3-8.2) g/dL Albumin (3.9-5) g/dL 01/30/18 01/30/18 Range/Units 20:05 20:05 WBC 15.8 H (4.5-11.0) K/mm3 MCV 70 L (79-97) fl MCH 23 L (28-32) pg RDW 17.6 H (13.2-15.2) % Sodium 132 L (137-145) mmol/L Chloride 97.4 L (98-107) mmol/L BUN 6 L (7-17) mg/dL Creatinine 0.6 L (0.7-1.2) mg/dL Calcium 7.4 L D (8.4-10.2) mg/dL Magnesium (1.7-2.3) mg/dL Total Protein 5.9 L (6.3-8.2) g/dL Albumin 3.0 L (3.9-5) g/dL
[2018-01-30] MEDS ORDERED: NORMODYNE PO SCH (22:00)
[2018-01-30 22:35] LABS: Band Neutrophils # (Manual) 0.6 K/mm3; Basophils % (Manual) 0 % (0.0-1.8); Eosinophils % (Manual) 0 % (0.0-4.3); Total Cells Counted 100
[2018-01-30 22:36] LABS: Hypochromasia 1+; Large Platelets 1+; Ovalocytes 1+; Platelet Estimate Consistent w Auto
[2018-01-30] MEDS: MOTRIN PO PRN (23:16)
[2018-01-31] MEDS: PERCOCET 5/325 PO PRN ×3 (03:18→23:27)
[2018-01-31] MEDS: MOTRIN PO PRN ×3 (05:32→23:27)
[2018-01-31] MEDS: VANCOMYCIN 1,500 MG in NACL 0.9% 500 ML 500 ML IV SCH ×2 (07:11→23:25)
--- NOTE | 2018-01-31 08:25 | Progress Note ---
Assessment and Plan patient resting in bed, afebrile since 01/30/18 @1900. Incision D&I. lochia scant, fundus firm. Patient using ISS 5 times qhour and receiving Vancamycin IVPB q12h. b/p's responded well to labetalol 200 MG TID - b/p's 113-130's/60-80' s since labetalol last night @ 2200. Continue current plan of care. encouraged ambulation, increase water intake and use of ISS. - Patient Problems (1) delivery delivered Onset Date: ~01/29/18 Current Visit: Yes Status: Acute (2) Febrile illness, acute Current Visit: Yes Status: Acute (3) Abnormal chest xray Current Visit: Yes Status: Acute (4) Preeclampsia Current Visit: Yes Status: Acute Qualifiers: Trimester: third trimester Qualified Code(s): O14.93 - Unspecified pre- eclampsia, third trimester Subjective - Subjective Date of service: 01/31/18 Principal diagnosis: Day # 2 s/p primary section, fever 01/30/18 @ 1900 Patient reports: appetite normal, voiding normally, pain well controlled, ambulating normally, no dizzy ambulation, no nauseated [place]: doing well, bottle feeding Objective - Vital Signs Latest vital signs: Vital Signs Temp Pulse Resp BP BP Pulse Ox 01/31/18 05:54 98.7 F 95 H 16 121/64 97 01/31/18 05:32 18 01/31/18 03:18 18 01/31/18 01:20 98.2 F 98 H 18 113/69 97 01/30/18 23:16 18 01/30/18 21:30 98 F 98 H 18 128/80 98 01/30/18 20:03 99.2 F 01/30/18 19:42 103 H 132/78 01/30/18 19:36 18 01/30/18 19:34 18 01/30/18 19:31 101.2 F H 103 H 22 132/78 93 01/30/18 17:55 101.6 F H 113 H 18 148/92 01/30/18 17:42 113 H 172/94 01/30/18 17:12 99.8 F H 117 H 20 172/94 91 01/30/18 16:26 107 H 167/97 01/30/18 15:30 107 H 18 167/97 93 01/30/18 11:46 99.0 F 122 H 20 152/91 97 01/30/18 11:35 98.5 F 18 128/94 01/30/18 09:59 98.9 F 116 H 20 141/93 97 Intake and Output 01/30/18 01/31/18 01/31/18 23:59 07:59 15:59 Intake Total 240 Output Total 1500 Balance -1500 240 Intake: Intake, Free Water 240 Output: Urine 1500 Indwelling Catheter 500 Void 1000 Other: Total, Output Amount 200 # Bowel Movements 1 - Exam Breasts: Present: normal Cardiovascular: Present: Regular rate Lungs: Present: Clear to auscultation, Normal air movement Abdomen: Present: normal appearance, soft Vulva: both: normal Uterus: Present: normal, firm, fundal height at umbilicus Extremities: Present: normal Deep Tendon Reflex Grade: Normal +2 Incision: Present: normal, dry, intact - Labs Labs: Abnormal lab results 01/30/18 01/30/18 01/30/18 Range/Units 13:19 20:05 20:05 WBC 15.8 H (4.5-11.0) K/mm3 MCV 70 L (79-97) fl MCH 23 L (28-32) pg RDW 17.6 H (13.2-15.2) % Seg Neuts % (Manual) 92.0 H (40.0-70.0) % Lymphocytes % (Manual) 1.0 L (13.4-35.0) % Seg Neutrophils # Man 14.5 H (1.8-7.7) K/mm3 Lymphocytes # (Manual) 0.2 L (1.2-5.4) K/mm3 Sodium 132 L (137-145) mmol/L Chloride 97.4 L (98-107) mmol/L BUN 6 L (7-17) mg/dL Creatinine 0.6 L (0.7-1.2) mg/dL Calcium 7.4 L D (8.4-10.2) mg/dL Magnesium 5.80 H (1.7-2.3) mg/dL Total Protein 5.9 L (6.3-8.2) g/dL Albumin 3.0 L (3.9-5) g/dL
[2018-01-31] MEDS: PRENATAL VITAMIN PO SCH (10:07)
[2018-01-31] MEDS: FEOSOL PO SCH (10:07)
[2018-01-31] MEDS: NORMODYNE PO SCH ×3 (10:07→23:11)
[2018-02-01] MEDS: NORMODYNE PO SCH (08:21)
--- NOTE | 2018-02-01 08:42 | Discharge Summary ---
Providers - Providers Date of Admission: 01/29/18 12:34 Date of discharge: 02/01/18 (pt agrees with d/c) Attending physician: KOLBY CAMPBELL 01/29/18 18:05 Consult to Supervisor Dyer [CONS] Routine Reason For Exam: Primary care physician: KOLBY CAMPBELL Hospitalization Reason for admission: section Delivery: Procedure: primary low transverse Episiotomy: none Laceration: none Incision: normal, dry, intact Other procedures: none complications: none Discharge diagnosis: IUP at term delivered baby: female Hospital course: uncomplicated section - BREECH Pt resting No c/o voiced VSS FF below umb Lochia scant Incision D&I H&H stable pt is asymptomatic Doing well s/p c/s P: d/c today with instructions RTO Saturday as elise by . RX Labetalol given Condition at discharge: Good Disposition: DC-01 TO HOME OR SELFCARE - Discharge Diagnoses (1) delivery delivered Status: Acute Comment: RTO Saturday for BP check and postop visit Plan - Discharge Medications Prescriptions: Ferrous Sulfate [Feosol 325 MG tab] 325 mg PO BID #60 tablet Ibuprofen [Motrin 800 MG tab] 800 mg PO Q6H PRN #30 tablet PRN Reason: Pain Labetalol [Normodyne TAB] 200 mg PO TID #60 tablet oxyCODONE /ACETAMINOPHEN [Percocet 5/325 mg] 1 - 2 tab PO Q4H PRN #30 tablet PRN Reason: Pain, Moderate - Provider Discharge Summary Activity: routine, no sex for 6 weeks, no heavy lifting 4 weeks, no strenuous exercise Diet: other (no salt) Instructions: routine Additional instructions: [] Smoking cessation referral if applicable(refer to patient education folder for contact #) [] Refer to [facility] Booklet Call your doctor immediately for: * Fever > 100.5 * Heavy vaginal bleeding ( >1 pad per hour) * Severe persistent headache * Shortness of breath * Reddened, hot, painful area to leg or breast * Drainage or odor from incision. * Keep incision clean and dry at all times and follow doctor's instructions regarding bathing/showering - Follow up plan Follow up: KOLBY CAMPBELL MD [Primary Care Provider] - 02/05/18 (Congratulations! Please keep appointment as scheduled on Saturday. Please call [phone] with any headache, blurred vision, chest pain. Motrin for cramping and pain, Tylenol for headaches. Call with any concerns.)
[2018-02-01 12:45] VITALS: BP 142/85
== END 2018-02-01 12:50 | disposition home or self-care (01) | DRG 765 ==
LOC: APU 12:34 → OB 18:47
PROVIDERS: ADMIT Obstetrics & Gynecology; ATTEND Obstetrics & Gynecology
PROC: 10D00Z1 Extraction of Products of Conception, Low, Open Approach (ICD-10-PCS; principal; 2018-01-29)
DX: O32.8XX0 Maternal care for other malpresentation of fetus, not applicable or unspecified (principal); O86.4 Pyrexia of unknown origin following delivery; O99.824 Streptococcus B carrier state complicating childbirth; O14.95 Unspecified pre-eclampsia, complicating the puerperium; Z3A.41 41 weeks gestation of pregnancy; Z37.0 Single live birth
CPT/HCPCS: 36415; 71045; 80048; 80053; 82140; 83735; 84450; 84460; 85007; 85014; 85018; 85025; 86850; 86900; 86901; 87040; 87086; 99211; G0463; J0360; J0690; J1200; J1885; J2274; J2370; J2405; J2590; J2765; J3370; J3475; J7040; J7120

== ENCOUNTER 2021-08-07 11:05 | Observation (INO) | payer MEDICAID, OTHER ==
--- NOTE | 2021-08-07 09:23 | History and Physical Report ---
History of Present Illness Date of examination: 08/01/21 Chief complaint: "I'm having a cerclage placed" History of present illness: Patient is at 14w5d and h/om premature delivery presenting for preoperative visit. Voices no complaints. To have cerclage placed on next week. Denies abdominal pain, vaginal bleeding, or leakage of fluid. Past History Past Medical History: no pertinent history Past Surgical History: section, other (cerclage) Family/Genetic History: hypertension Social history: - Obstetrical History Expected Date of Delivery: 01/25/22 Actual Gestation: 15 Week(s) 4 Day(s) : 3 Hx # Term Pregnancies: 1 Number of Pregnancies: 1 Spontaneous Abortions: 0 Induced : 0 Number of Living Children: 1 Medications and Allergies Allergies Allergy/AdvReac Type Severity Reaction Status Date / Time No Known Allergies Allergy Verified 07/26/17 05:54 Home Medications Medication Instructions Recorded Confirmed Last Taken Type Vit No.130/Iron/Folic 1 each PO QDAY 07/26/17 01/29/18 01/28/18 08:00 History [ Tablet] Ferrous Sulfate [Feosol 325 MG tab] 325 mg PO BID #60 tablet 01/29/18 Unknown Rx Ibuprofen [Motrin 800 MG tab] 800 mg PO Q6H PRN #30 tablet 01/29/18 Unknown Rx oxyCODONE /ACETAMINOPHEN [Percocet 1 - 2 tab PO Q4H PRN #30 tablet 01/29/18 Unknown Rx 5/325 mg] labetaloL [Labetalol 200mg TAB] 200 mg PO TID #60 tablet 02/01/18 Unknown Rx Review of Systems All systems: negative - Physical Exam Cardiovascular: Regular rate, Normal S1, Normal S2 Lungs: Positive: Clear to auscultation Abdomen: Positive: normal appearance, soft, normal bowel sounds. Negative: distention, tenderness Extremities: Results All other labs normal. Assessment and Plan Patient with h/o premature delivery. Desires cerclage placement. Cervical length today within normal limits Risks of procedure reviewed including pain, bleeding, infection, inflammation of membranes, rupture of membranes, delivery. Procedure and blood consent signed Patient to present to [facility] for procedure with Dr. Subramanian. All questions and concerns addressed - Patient Problems (1) Cervical incompetence affecting management of in second trimester, antepartum Status: Acute
[2021-08-07] MEDS ORDERED: LACTATED RINGERS 1,000 ML ONE (11:39)
[2021-08-07] MEDS ORDERED: fentaNYL 100 MCG/2 ML INJ IV PRN (12:00)
[2021-08-07] MEDS ORDERED: LACTATED RINGERS 1,000 ML IV SCH (12:00)
[2021-08-07] MEDS ORDERED: ePHEDrine SULFATE 50 MG/1 ML INJ IV PRN (12:00)
--- NOTE | 2021-08-07 12:23 | Anesthesia Day of Surgery ---
Anesthesia Day of Surgery - Day of Surgery Patient Examined: Yes Patient H&P Reviewed: Yes Patient is NPO: Yes (gum more then 2 hr ago)
--- NOTE | 2021-08-07 12:26 | Anesthesia Consultation ---
Anesthesia Consult and Med Hx Date of service: 08/07/21 - Airway Anesthetic Teeth Evaluation: Good Mallampati Class: Class II Intubation Access Assessment: Probably Good - Pulmonary Exam CTA: Yes - Cardiac Exam Cardiac Exam: RRR - Pre-Operative Health Status ASA Pre-Surgery Classification: ASA2 Proposed Anesthetic Plan: Spinal - Pre-Anesthesia Comment Pre-Anesthesia Comments: csection 2017, cervical cerclage 2018 back pain from SAB, no other anesthesia complications - Pulmonary Hx Smoking: No Hx Asthma: No COPD: No Hx Pneumonia: No - Cardiovascular System Hx Hypertension: No - Central Nervous System Hx Seizures: No Hx Psychiatric Problems: No - Gastrointestinal Hx Gastroesophageal Reflux Disease: Yes - Endocrine Hx Renal Disease: No Hx End Stage Renal Disease: No Hx Insulin Dependent Diabetes: No Hx Non-Insulin Dependent Diabetes: No Hx Hypothyroidism: No Hx Hyperthyroidism: No - Hematic Hx Anemia: No Hx Sickle Cell Disease: No - Other Systems Hx Alcohol Use: No Hx Substance Use: No Hx Obesity: Yes
[2021-08-07] MEDS ORDERED: TERBUTALINE 1 MG/1 ML INJ SUB-Q PRN (12:30)
[2021-08-07] MEDS ORDERED: ACETAMINOPHEN 325 MG TAB PO PRN (12:30)
[2021-08-07] MEDS ORDERED: BUTORPHANOL 2 MG/1 ML INJ IV PRN (12:30)
[2021-08-07 13:03] LABS: Hematocrit 35.7 % (30.3-42.9); Hemoglobin 11.5 gm/dl (10.1-14.3); Mean Corpuscular HGB Conc 32 % (30-34); Platelet Count 227 K/mm3 (140-440); Red Blood Count 5.23 M/mm3 (3.65-5.03); Red Cell Distribution Width 16.9 % (13.2-15.2)
[2021-08-07 13:07] LABS: Mean Corpuscular Volume 68 fl (79-97)
[2021-08-07] MEDS ORDERED: PHENYLEPHRINE/NS 1,000 MCG/10 ML SYRINGE (OR USE) IV ONE (13:32)
[2021-08-07] MEDS ORDERED: ceFAZolin 1 GM VIAL ONE ×2 (13:48)
[2021-08-07] MEDS ORDERED: ONDANSETRON 4 MG/2 ML INJ ONE (13:48)
[2021-08-07] MEDS ORDERED: WATER FOR INJ Sterile (PF) 10 ML ONE (13:49)
--- NOTE | 2021-08-07 14:10 | Operative Report ---
Operative Report Operative Report: Date of procedure: 08/07/2021 Pre-operative diagnosis: Cervical incompetence Post-operative diagnosis: Same Procedure name(s): Ty cerclage Surgeon: Dr. Subramanian Social Worker Palliative Care: MARIA LUZ Anesthesia: Spinal EBL: Minimal Urine output: 25 cc of clear urine out via straight catheterization prior to the onset of the procedure Fluids: 300 mL Findings: Normal cervix closed with last cervical length over 4 cm on sonogram done 3 days ago. Physical exam consistent with this. No bleeding noted at the end of the procedure. Indications: Patient presents with a history of cervical incompetence with previous placement of Ty cerclage. Patient desired repeat placement of Ty cerclage. All risk benefits and alternatives were discussed with the patient. Consents were signed and placed on the chart. Procedure: After informed consent was obtained patient was taken to the operating room where she was placed in dorsal lithotomy position with legs being placed in Scott stirrups. The patient was then prepped and draped in sterile fashion. Sterile speculum was then placed inside of the vagina. Cervix was then prepped with Betadine. Anterior lip of the cervix was grasped with the ring forceps. The Mersilene suture was then placed starting at the 12:00 position with a purse string suture being placed to encompass the entire cervix. Care was taken to avoid the 3:00 and 6:00 positions of the cervix. The suture was then secured by tying down the suture with several knots. There was no bleeding noted at the end of the procedure. Patient tolerated procedure well. All instruments were removed from the vagina. Patient was taken to the recovery room awake and in stable condition.
--- NOTE | 2021-08-07 14:12 | Short Stay Summary ---
Short Stay Documentation Date of service: 08/07/21 - History Social history: - Allergies and Medications Current Medications: Allergies No Known Allergies Allergy (Verified 07/26/17 05:54) Home Medications Medication Instructions Recorded Confirmed Last Taken Type Vit No.130/Iron/Folic 1 each PO QDAY 07/26/17 01/29/18 01/28/18 08:00 History [ Tablet] Ferrous Sulfate [Feosol 325 MG tab] 325 mg PO BID #60 tablet 01/29/18 Unknown Rx Ibuprofen [Motrin 800 MG tab] 800 mg PO Q6H PRN #30 tablet 01/29/18 Unknown Rx oxyCODONE /ACETAMINOPHEN [Percocet 1 - 2 tab PO Q4H PRN #30 tablet 01/29/18 Unknown Rx 5/325 mg] labetaloL [Labetalol 200mg TAB] 200 mg PO TID #60 tablet 02/01/18 Unknown Rx Active Medications Acetaminophen (Acetaminophen 325 Mg Tab) 650 mg PO Q4H PRN PRN Reason: Pain, Mild (1-3) Butorphanol Tartrate (Butorphanol 2 Mg/1 Ml Inj) 1 mg IV Q2H PRN PRN Reason: Pain, Moderate(4-6) LABOR PAIN Ephedrine Sulfate (Ephedrine Sulfate 50 Mg/1 Ml Inj) 10 mg IV Q2M PRN PRN Reason: Hypotension Fentanyl (Fentanyl 100 Mcg/2 Ml Inj) 100 mcg IV Q2H PRN PRN Reason: Pain,Severe (7-10) LABOR PAIN Lactated Ringer's (Lactated Ringers) 1,000 mls @ 125 mls/hr IV DIRECT [facility]A Terbutaline Sulfate (Terbutaline 1 Mg/1 Ml Inj) 0.25 mg SUB-Q ONCE PRN PRN Reason: Hyperstimulation/Hypertonicity - Brief post op/procedure progress note Date of procedure: 08/07/21 Pre-op diagnosis: cervical incompetence Post-op diagnosis: same Procedure: Ty cerclage exam under anesthesia Anesthesia: spinal Findings: see operative report Surgeon: ANGELA KELLER Estimated blood loss: minimal Pathology: none - Disposition Condition at discharge: Good Disposition: 01 HOME / SELF CARE / HOMELESS Short Stay Discharge Plan Activity: other (pelvic rest NOTHINN IN VAGINA. NO SEX, NO TAMPONS, NO DOUCHING. DO NOT LIFT ANYTING HEAVIER THAN 15POUNDS) Weight Bearing Status: Weight Bear as Tolerated Diet: regular Follow up with: ANGELA KELLER MD [Primary Care Provider] - 7 Days Forms: [facility] Discharge Summary Prescriptions: Acetaminophen/Codeine [Tylenol /Codeine # 3 tab] 1 tab PO Q6H PRN #5 tab PRN Reason: Pain , Severe (7-10)
--- NOTE | 2021-08-07 14:35 | Progress Note ---
Spinal Anesthesia Block - Spinal Anesthesia Block Start Time: 13:35 Stop Time: 13:37 Performed by:: LUCITA LOYD Procedure: Patient IDed, H&P reviewed, all questions and concerns were answered, and consent was signed. Timeout was performed at bedside. Patient in sitting position. Sterile prep and drape was performed. [3] ml of 1% lidocaine skin wheal at L[3]- L [4]. Needle introducer advanced. 25 gauge spinal needle advanced. Clear, free flowing CSF. negative blood, negative paresthesia. Spinal dose given. All needles removed. Patient tolerated procedure.
[2021-08-07] MEDS ORDERED: ACETAMINOPHEN 500 MG TAB PO ONE (16:30)
[2021-08-07 19:22] VITALS: BP 114/70
== END 2021-08-07 20:38 | disposition home or self-care (01) ==
LOC: LDOR 11:05 → APU 11:06 → LDOR 11:53 → APU 13:26 → LD 15:40
PROVIDERS: ADMIT Obstetrics & Gynecology; ATTEND Obstetrics & Gynecology
DX: O34.32 Maternal care for cervical incompetence, second trimester (principal); Z3A.14 14 weeks gestation of pregnancy; Z98.891 History of uterine scar from previous surgery
CPT/HCPCS: 36415; 59320; 85027; 86592; 86850; 86900; 86901; G0378; G0379; J0690; J2370; J2405

== ENCOUNTER 2021-10-19 13:42 | Emergency (ER) | payer MEDICAID ==
[2021-10-19 16:00] VITALS: BP 115/72
== END 2021-10-19 17:00 | disposition left against medical advice (07) ==
LOC: ED 13:42
DX: J11.1 Influenza due to unidentified influenza virus with other respiratory manifestations (principal); Z53.21 Procedure and treatment not carried out due to patient leaving prior to being seen by health care provider

== ENCOUNTER 2022-01-18 06:38 | Inpatient (IN) | payer MEDICAID ==
[2022-01-17 13:57] LABS: Hematocrit 36.5 % (30.3-42.9); Hemoglobin 11.8 gm/dl (10.1-14.3); Red Blood Count 5.21 M/mm3 (3.65-5.03)
[2022-01-17 13:58] LABS: Mean Corpuscular HGB Conc 33 % (30-34); Mean Corpuscular Volume 70 fl (79-97); Platelet Count 167 K/mm3 (140-440); Red Cell Distribution Width 17.1 % (13.2-15.2)
--- NOTE | 2022-01-17 20:52 | History and Physical Report ---
History of Present Illness Date of examination: 01/17/22 History of present illness: Patient been admitted for scheduled repeat section. Patient care has been complicated by history of cervical incompetence and she underwent a cervical cerclage on the successfully. Menstrual History Regularity: regular Menses every: 28 days Duration: 5 LMP: 04/20/2021 LMP reliability: definite LMP character: normal test type: urine test Date: 05/25/2021 BC at conception: none Planned ? yes EDC Calculations LMP: 01/25/2022 EDC Confirmation: 01/25/2022 ast History : 3 Term Births: 1 Premature Births: 1 Living Children: 1 Para: 2 Mult. Births: 0 Prev : 1 Prev. attempt? 0 Aborta: 0 Elect. Ab: 0 Spont. Ab: 0 Ectopics: 0 # 1 Delivery date: 11/2016 Weeks Gestation: 21 Delivery type: Comments: nonviable delivery # 2 Delivery date: 01/29/2018 Weeks Gestation: 41 Delivery type: Anesthesia type: Spinal Delivery location: [facility] Infant Sex: female weight: 7.56 Name: Shana Comments: breech presentation Past Medical History: Negative Past Medical History Past Surgical History: (01/29/2018) Cervical cerclage Risk Factors: Smoked Tobacco Use: Never smoker Smokeless Tobacco Use: Never Counseled to Quit/Cut Down: yes Passive Smoke Exposure: no HIV High Risk Behavior: no Caffeine Use: <1 drinks per day Exercise: no Exercise Counseling: yes Seatbelt Use: preg-counsel[employer] % Sun Exposure: rarely Family History Risk Factors: Family History of [place] in 1 Female Relative Age < 65: no Family History of [place] in 1 Male Relative Age < 55: no No Dietary Counseling Reason: pn yes Past Medical History Anesthesia Complications: negative Anemia: negative Autoimmune Disorder: negative Bleeding Disorder: negative Blood Transfusions: negative Breast Disease: negative Diabetes: negative Heart Disease: negative Hypertension: negative Hepatitis/Liver Disease: negative Kidney Disease/UTI: negative Neurologic/Epilepsy/Migraines: negative Phlebitis/Varicosities: negative Psychiatric: negative Pulmonary Disease/Asthma: negative Thyroid Disease: negative Hospitalizations: negative Abnormal PAP: positive YUSUF Exposure: negative Infertility: negative Uterine Anomaly: negative Uterine Surgery (not C/S): negative Other Gynecologic Problems: negative Social Hx: Obgyn Nurse @ [employer] no smoking/drugs/ETOH Patient is Infection History Hx of STD: none HIV Risk Eval: no Hepatitis B Risk Eval: low risk Personal hx. of genital herpes: no Partner hx. of genital herpes: no Rash, Viral, or Febrile illness since last LMP? no Varicella/Chicken Pox Status: Immunized TB Risk: no Genetic History Congenital Heart Defect: Mom: no Dad: no Sumit Disease: Mom: no Dad: no Thalassemia Mom: no Dad: no Neural Tube Defect Mom: no Dad: no Down's Syndrome Mom: no Dad: no Chaim-Sachs Mom: no Dad: no Sickle Cell Disease/Trait Mom: no Dad: no Hemophilia Mom: no Dad: no Muscular Dystrophy Mom: no Dad: no Cystic Fibrosis Mom: no Dad: no [place] Chorea Mom: no Dad: no Mental Retardation Mom: no Dad: no Fragile X Mom: no Dad: no Other Genetic/Chromosomal Disorder Mom: no Dad: no Child w/other defect Mom: no Dad: no Enviromental Exposures Xray Exposure: no Medication, drug, or alcohol use since LMP: no Chemical/Other Exposure: no Exposure to Cat Liter: no Hx of Parvovirus (Fifth Disease): no Occupational Exposure to Children: none Current Allergies (reviewed today): No known allergies Past History Past Medical History: other (See HPI) Past Surgical History: section, other (See HPI) CLIENT SERVICE EXECUTIVE History: other (See HPI) Family/Genetic History: other (See HPI) Social history: full code, other (See HPI) - Obstetrical History Expected Date of Delivery: 01/25/22 Actual Gestation: 39 Week(s) 0 Day(s) : 3 Para: 2 Hx # Term Pregnancies: 1 Number of Pregnancies: 1 (21 week nonviable) Spontaneous Abortions: 0 Induced : 0 Number of Living Children: 1 Medications and Allergies Allergies Allergy/AdvReac Type Severity Reaction Status Date / Time No Known Allergies Allergy Verified 01/09/22 14:57 Home Medications Medication Instructions Recorded Confirmed Last Taken Type Vit-Fe Fumar-FA [ 1 tab PO QDAY 01/09/22 01/09/22 Unknown H istory Vitamin] Review of Systems Constitutional: other (See HPI) - Vital Signs Vital signs: Vital Signs Temp Pulse Resp BP Pulse Ox 97.4 F L 99 H 16 108/72 97 01/17/22 13:05 01/17/22 13:05 01/17/22 13:05 01/17/22 13:05 01/17/22 13:05 Temp Pulse Resp BP Pulse Ox 97.4 F L 99 H 16 108/72 97 01/17/22 13:05 01/17/22 13:05 01/17/22 13:05 01/17/22 13:05 01/17/22 13:05 - Physical Exam Breasts: Positive: deferred Cardiovascular: Regular rate Lungs: Positive: Normal air movement Abdomen: Positive: normal appearance, soft Genitourinary (Female): Positive: normal external genitalia Uterus: Positive: enlarged Extremities: Positive: edema - Obstetrical FHR: auscultation normal Uterine Contraction Pattern: Absent Uterine Tone Measurement Phase: Contraction Results Result Diagrams: 01/17/22 13:20 Abnormal lab results 01/17/22 Range/Units 13:20 RBC 5.21 H (3.65-5.03) M/mm3 MCV 70 L (79-97) fl MCH 23 L (28-32) pg RDW 17.1 H (13.2-15.2) % All other labs normal. Assessment and Plan - Patient Problems (1) Previous delivery affecting , antepartum Current Visit: No Status: Acute Plan to address problem: Discuss the risks of the surgery including infection, bleeding possibly heavy enough to require a blood transfusion, possible damage to bowel, bladder or ureter. Patient understands her risks of adjacent organ damage is increased due to her previous surgery(ies) Her questions were answered. Patient understands and desires to proceed (2) Maternal care for cervical incompetence, third trimester Current Visit: No Status: Acute Plan to address problem: S/p cerclage placemnt during
[2022-01-18] MEDS ORDERED: LACTATED RINGERS 1,000 ML IV SCH (09:30)
--- NOTE | 2022-01-18 09:57 | Anesthesia Day of Surgery ---
Anesthesia Day of Surgery - Day of Surgery Patient Examined: Yes Patient H&P Reviewed: Yes Patient is NPO: Yes (Clears 2 hrs ago)
--- NOTE | 2022-01-18 09:58 | Anesthesia Consultation ---
Anesthesia Consult and Med Hx Date of service: 01/18/22 - Airway Anesthetic Teeth Evaluation: Good ROM Head & Neck: Adequate Mental/Hyoid Distance: Adequate Mallampati Class: Class II Intubation Access Assessment: Probably Good - Pulmonary Exam CTA: Yes - Cardiac Exam Cardiac Exam: RRR - Pre-Operative Health Status ASA Pre-Surgery Classification: ASA2 Proposed Anesthetic Plan: Spinal - Pre-Anesthesia Comment Pre-Anesthesia Comments: csection x 1 - Breech presentation, Cercloge x 2 - Pulmonary Hx Smoking: No Hx Asthma: No COPD: No Hx Pneumonia: No - Cardiovascular System Hx Hypertension: No - Central Nervous System Hx Seizures: No Hx Psychiatric Problems: No - Gastrointestinal Hx Gastroesophageal Reflux Disease: Yes - Endocrine Hx Renal Disease: No Hx End Stage Renal Disease: No Hx Insulin Dependent Diabetes: No Hx Non-Insulin Dependent Diabetes: No Hx Hypothyroidism: No Hx Hyperthyroidism: No - Hematic Hx Anemia: No Hx Sickle Cell Disease: No - Other Systems Hx Alcohol Use: No Hx Substance Use: No Hx Cancer: No Hx Obesity: Yes
[2022-01-18] MEDS ORDERED: MORPHINE PF 10MG/10 ML AMPULE ONE (10:28)
[2022-01-18] MEDS ORDERED: BUPIVACAINE/PF (0.5%) 5 MG/1 ML 30 ML VIAL INFILTRATI ONE (10:28)
[2022-01-18] MEDS ORDERED: PHENYLEPHRINE 10 MG/1 ML INJ SDV ONE (10:29)
[2022-01-18] MEDS ORDERED: SODIUM CHLORIDE 0.9% 100 ML ONE ×2 (10:29→12:32)
[2022-01-18] MEDS ORDERED: METOCLOPRAMIDE 10 MG/2 ML INJ IV ONE (11:00)
[2022-01-18] MEDS ORDERED: BICITRA ORAL LIQD 30ML PO ONE (11:00)
[2022-01-18] MEDS ORDERED: FAMOTIDINE 20 MG/2 ML INJ IV ONE (11:00)
[2022-01-18] MEDS ORDERED: ceFAZolin/Water 2 GM/20 ML 2 GM/20 ML SYRINGE IV NR (11:00)
[2022-01-18] MEDS ORDERED: ONDANSETRON 4 MG/2 ML INJ ONE (11:46)
[2022-01-18] MEDS ORDERED: OXYTOCIN DRIP 30 UNITS/500 ML BAG IV SCH ×2 (12:00→14:28)
[2022-01-18] MEDS ORDERED: LACTATED RINGERS 1,000 ML ONE (12:05)
[2022-01-18] MEDS ORDERED: SODIUM CHLORIDE 0.9% IRR 1,500 ML BOTTLE IR ONE (12:16)
[2022-01-18] MEDS ORDERED: WATER FOR IRRIG STERILE 1,500 ML BOTTLE IR ONE (12:16)
[2022-01-18] MEDS ORDERED: dexAMETHasone 20 MG/5 ML VIAL ONE (12:31)
--- NOTE | 2022-01-18 13:03 | Progress Note ---
Spinal Anesthesia Block - Spinal Anesthesia Block Start Time: 11:37 Stop Time: 11:43 Performed by:: LUCITA LOYD Procedure: Patient IDed, H&P reviewed, all questions and concerns were answered, and consent was signed. Timeout was performed at bedside. Patient in sitting position. Sterile prep and drape was performed. [3] ml of 1% lidocaine skin wheal at L[3]- L [4]. Needle introducer advanced. 25 gauge spinal needle advanced. Clear, free flowing CSF. negative blood, negative paresthesia. Spinal dose given. All needles removed. Patient tolerated procedure.
--- NOTE | 2022-01-18 13:09 | Progress Note ---
Regional Anesthesia Block - Regional Anesthesia Block Start Time: 11:45 Stop Time: 12:50 Performed By:: LUCITA LOYD Procedure: Patient consented for TAP block for post surgical pain management. Patient identified, monitors placed, and time out performed. TAP identified bilaterally via ultrasound. Skin prepped bilaterally with [chlorhexidine] and [22g stimuplex] needle advanced to the TAP. [Marcaine 0.22% 35ml] injected under ultrasound guidance on the [left] side. [Marcaine 0.22% 35ml] injected under ultrasound guidance on the [right] side. Negative aspiration every 5mL, No change in heart rate or rhythm. Patient tolerated the procedure well. No apparent complications seen. B/P 120/78 HR 79 RR 22 SPO2 100%
--- NOTE | 2022-01-18 13:33 | Operative Report ---
Operative Report Operative Report: Date of procedure: January 18, 2022 Pre-operative diagnosis: Intrauterine at 39 weeks with previous section Post-operative diagnosis: Same Procedure name(s): Repeat low transverse section Surgeon: Michael Amor MD Animal Assisted Therapist: MARIA LUZ Anesthesia: Spinal EBL: Quantitative blood loss 461 cc Complications: None Findings: Patient with adhesions between the anterior abdominal wall and anterior uterus and one thick adhesion between the anterior abdominal wall and a fundus. Female weight 6 pounds 10 ounces Apgars 8 at 1 minute and 9 at 5 minutes. Specimen(s): None Procedure: The patient was brought to the operating room. A spinal was placed without any complications. She was then placed in left lateral tilt. Prepped and draped in the usual sterile manner. Timeout was performed. After testing for adequate anesthesia level, a Pfannenstiel incision was made through her previous scar. This incision was taken down to the fascia. The fascia was then nicked in the midline. This incision was extended out laterally with Hamm scissors. The fascia was then sharply and bluntly from the underlying rectus muscles. The rectus muscles were bluntly and sharply . The peritoneum was then entered with the drawing operator's fingers. This incision was spread vertically bluntly and sharply with some sharp dissection of adhesions between the rectus muscles and anterior uterus. This was done with care not to damage the bladder below. The Syd self-retaining tractor was then placed without any difficulty. The bladder flap was then formed sharply and bluntly with Metzenbaum scissors. A transverse incision was made in lower uterine segment. This incision was extended laterally with the operators fingers. The amniotic sac was then entered bluntly with the drawing operator's fingers. The infant was delivered from the vertex position. Bulb suction on the mother's abdomen. Cord was double clamped and cut. The was then passed to the nursery personnel who were in attendance. The above scores were given by the [facility] personnel. The placenta was then bluntly removed. The uterus could not be externalized and was wiped clean the remaining products. The uterine incision was closed in the abdomen this was done in layers. The first incision was closed in a locking manner using 0 Vicryl. This was followed by imbricating stitch also with 0 Vicryl. This closure was hemostatic. After additional [id number] sutures. The bladder flap was copiously irrigated and found to be hemostatic. The pelvis was copiously irrigated and found to be hemostatic. Surgicel was placed along the uterine closure. The retractors were removed. The rectus muscles were inspected and found to be hemostatic. The fascia was then closed in a running manner using 0 Vicryl. This incision was hemostatic irrigation Bovie. The space through the adipose patient tissue was closed in interrupted fashion. The skin was reapproximated with 4-0 Vicryl subcuticularly. The patient tolerated procedure well. Her urine was clear. The infant was admitted to the [facility] nursery. The patient was accompanied to recovery room in good condition. Instrument count correct x3
[2022-01-18] MEDS ORDERED: SIMETHICONE 80 MG CHEW TAB PO PRN (14:28)
[2022-01-18] MEDS ORDERED: D5W/LACTATED RINGERS 1,000 ML IV SCH (14:28)
[2022-01-18] MEDS ORDERED: MAGNESIUM HYDROXIDE (MOM) ORAL LIQD UDC PO PRN (14:28)
[2022-01-18] MEDS ORDERED: ceFAZolin/NS 1 GM/50 ML 1 GM/50 ML BAG IV SCH (14:28)
[2022-01-18] MEDS ORDERED: WITCH HAZEL/ GLYCERIN PAD TP PRN (14:28)
[2022-01-18] MEDS ORDERED: NALOXONE 0.4 MG/1 ML INJ IV PRN (14:28)
[2022-01-18] MEDS ORDERED: ONDANSETRON 4 MG/2 ML INJ IV PRN (14:28)
[2022-01-18] MEDS ORDERED: oxyCODONE /ACETAMINOPHEN 5-325MG TAB PO PRN (14:28)
[2022-01-18] MEDS ORDERED: LANOLIN/ZINC/DIMETHICONE (LANSINOH) 7 GM TP PRN (14:28)
[2022-01-18] MEDS: KETOROLAC 30 MG/1 ML INJ IV SCH ×2 (17:57→22:13)
[2022-01-19 01:01] LABS: Hematocrit 33.5 % (30.3-42.9); Hemoglobin 10.3 gm/dl (10.1-14.3)
[2022-01-19] MEDS ORDERED: diphenhydrAMINE 50 MG/ML VIAL IV ONE (02:41)
[2022-01-19] MEDS: KETOROLAC 30 MG/1 ML INJ IV SCH (05:00)
--- NOTE | 2022-01-19 08:13 | Progress Note ---
Assessment and Plan postop H&H 10.3/33.5, VSSAF, no complaints - Patient Problems (1) delivery delivered Onset Date: ~01/29/18 Current Visit: No Status: Acute Plan to address problem: continue postop pathway advance diet and activity as tolerated Subjective - Subjective Date of service: 01/19/22 Principal diagnosis: postop day #1 s/p repeat c/s Patient reports: appetite normal, voiding normally, pain well controlled, ambulating normally, no dizzy ambulation, no nauseated [place]: doing well, nursing well (breast and bottle feed) Objective - Vital Signs Latest vital signs: Vital Signs Temp Pulse Resp BP Pulse Ox Pulse Ox 01/19/22 05:00 16 01/19/22 04:56 98.2 F 74 20 105/69 99 01/18/22 23:48 98.3 F 78 20 99/57 98 01/18/22 22:00 98 01/18/22 20:24 98.2 F 82 20 117/72 98 01/18/22 16:50 98.7 F 81 18 120/79 97 01/18/22 14:00 98 H 15 101/54 100 01/18/22 13:45 98.2 F 104 H 15 92/62 99 01/18/22 13:30 98.2 F 84 16 96/60 99 01/18/22 13:10 76 14 113/63 98 01/18/22 13:05 90 15 111/73 100 01/18/22 13:00 98.3 F 90 15 120/78 100 01/18/22 10:48 99 F 16 01/18/22 10:01 93 H 117/81 Intake and Output 01/18/22 01/19/22 01/19/22 23:59 07:59 15:59 Intake Total 360 Output Total 1200 375 Balance -840 -375 Intake: Oral 360 Output: Urine 1200 375 Indwelling Catheter 1200 Self-Catheterization 375 Other: Total, Intake Amount 240 Total, Output Amount 400 375 - Exam Breasts: Present: normal, Cardiovascular: Present: Regular rate Abdomen: Present: normal appearance, soft Vulva: both: normal Uterus: Present: normal, firm, fundal height at umbilicus Extremities: Present: normal Deep Tendon Reflex Grade: Normal +2 Incision: Present: normal, dry, intact
[2022-01-19] MEDS: FERROUS SULFATE 325 MG TAB PO SCH (11:09)
--- NOTE | 2022-01-19 11:54 | Post Anesthesia Evaluation ---
- Post Anesthesia Evaluation Patient Participated: Yes Airway Patent: Yes Stable Respiratory Function: Yes Nausea/Vomiting: No Temp > 96.8F: Yes Pain Manageable: Yes Adequeate Hydration: Yes Anesthesia Complications: No Block Receding Appropriately: Yes Patient on Ventilator: No
[2022-01-19] MEDS ORDERED: TETANUS,DIPH,PERTUSS(ACELL) VACCINE 0.5 ML SYRINGE IM ONE (13:24)
[2022-01-19] MEDS ORDERED: MEASLES, MUMPS & RUBELLA 12,500 UNIT/0.5 ML VACCINE SUB-Q ONE (13:24)
[2022-01-19] MEDS: IBUPROFEN 600 MG TAB PO PRN (23:30)
[2022-01-20 09:44] VITALS: BP 105/72
--- NOTE | 2022-01-20 11:18 | Discharge Summary ---
Providers - Providers Date of Admission: 01/18/22 09:33 Date of discharge: 01/20/22 (desires d/c home) Attending physician: KOLBY CAMPBELL 01/18/22 14:28 Consult to Supervisor [employer] [CONS] Routine Reason For Exam: Primary care physician: KOLBY CAMPBELL Hospitalization Reason for admission: repeat c/s Condition: Good Pertinent studies: postop H&H 10.3/33.5 Procedures: repeat c/s Hospital course: uncomplicated repeat c/s and course Disposition: 01 HOME / SELF CARE / HOMELESS Final Discharge Diagnosis (Prints w/discharge instructions): postop c/s Time spent for discharge: 20 - Discharge Diagnoses (1) delivery delivered Status: Acute Comment: RTO Saturday for BP check and postop visit Core Measure Documentation - Palliative Care Palliative Care/ Comfort Measures: Not Applicable - Core Measures Any of the following diagnoses?: none Exam - Constitutional Vitals: Temp Pulse Resp BP Pulse Ox 98.0 F 90 18 105/72 98 01/20/22 08:38 01/20/22 08:38 01/20/22 08:38 01/20/22 08:38 01/20/22 08:38 General appearance: Present: no acute distress, well-nourished - EENT Eyes: Present: PERRL ENT: hearing intact, clear oral mucosa - Neck Neck: Present: supple, normal ROM - Respiratory Respiratory effort: normal Respiratory: bilateral: CTA - Cardiovascular Rhythm: regular Heart Sounds: Absent: rub, click - Extremities Extremities: No edema Peripheral Pulses: within normal limits - Abdominal General gastrointestinal: Present: soft, non-tender, non-distended, normal bowel sounds Female genitourinary: Present: normal - Integumentary Integumentary: Present: clear, warm, dry - Musculoskeletal Musculoskeletal: gait normal, strength equal bilaterally - Psychiatric Psychiatric: appropriate mood/affect, intact judgment & insight - Neurologic Neurologic: CNII-XII intact, moves all extremities - Additional findings Additional findings: incision D&I, lochia scant, fundus firm Plan Activity: advance as tolerated Diet: regular Wound: open to air, keep clean and dry Follow up with: KOLBY CAMPBELL MD [Primary Care Provider] - 7 Days Prescriptions: Ferrous Sulfate [Feosol 325 MG tab] 325 mg PO BID #60 tablet Ibuprofen [Motrin] 800 mg PO TID PRN #30 tablet PRN Reason: Pain oxyCODONE /ACETAMINOPHEN [Percocet 5/325 mg] 1 tab PO Q6HR PRN #20 tablet PRN Reason: Pain
[2022-01-20] MEDS: IBUPROFEN 600 MG TAB PO PRN (11:52)
[2022-01-20] MEDS: FERROUS SULFATE 325 MG TAB PO SCH (11:53)
== END 2022-01-20 15:41 | disposition home or self-care (01) | DRG 765 ==
LOC: APU 09:33 → OB 14:06
PROVIDERS: ADMIT Obstetrics & Gynecology; ATTEND Obstetrics & Gynecology
PROC: 10D00Z1 Extraction of Products of Conception, Low, Open Approach (ICD-10-PCS; principal; 2022-01-18)
PROC: 3E0T3BZ Introduction of Anesthetic Agent into Peripheral Nerves and Plexi, Percutaneous Approach (ICD-10-PCS; 2022-01-18)
PROC: 3E0234Z Introduction of Serum, Toxoid and Vaccine into Muscle, Percutaneous Approach (ICD-10-PCS; 2022-01-19)
DX: O34.211 Maternal care for low transverse scar from previous cesarean delivery (principal); O34.33 Maternal care for cervical incompetence, third trimester; Z37.0 Single live birth; Z3A.39 39 weeks gestation of pregnancy; Z20.822 Contact with and (suspected) exposure to COVID-19; Z23 Encounter for immunization; K21.9 Gastro-esophageal reflux disease without esophagitis; O99.62 Diseases of the digestive system complicating childbirth
CPT/HCPCS: 36415; 85014; 85018; 85027; 86592; 86850; 86900; 86901; G0378; J3490; J7060; J7121; C1765; J0690; J1100; J1200; J1885; J2274; J2370; J2405; J2765; J7120; U0003